=== PATIENT | female | born 1945 | race Caucasian/White ===

== ENCOUNTER → 2016-06-26 | Outpatient (CLI) | payer MEDICARE, OTHER ==
[~2016-06-26] MED LIST: ACULAR LS 5 ML5 ML OS; ANTIVERT 25MG25 MG PO; CEPHALEXIN500 M1 PO; IBUPROFEN200 M1 PO; NATURAL TEARS OS; NORCO 325 MG-51 TAB PO; OCUFLOX 10 ML10 ML OS; PRED FORTE 1 ML1 ML OS; PROAIR HFA0.09 MG/AC IH; SYNTHROID0.1 MG/TAB PO; VICODIN 5/5001 UDTAB PO; ZOVIRAX400 MG PO
== END ==
LOC: MC.RAD 12:58
DX: Z12.31 Encounter for screening mammogram for malignant neoplasm of breast (principal)

== ENCOUNTER 2017-07-28 17:32 | Emergency (ER) | payer MEDICARE, OTHER ==
[~2017-07-28] VITALS: Ht 162.6 cm; Wt 100.3 kg
[2017-07-28 17:36] VITALS: TEMP 98.8
[2017-07-28] MEDS ORDERED: CEPHALEXIN500 M1 PO (19:35)
[2017-07-28] MEDS ORDERED: SUDAFED30 MG PO (19:35)
[2017-07-28 19:52] VITALS: BP 146/91; PULSE 71
== END 2017-07-28 19:57 | disposition home or self-care (01) ==
LOC: COL.ER 17:32
DX: S30.0XXA Contusion of lower back and pelvis, initial encounter (principal); S00.83XA Contusion of other part of head, initial encounter; S60.221A Contusion of right hand, initial encounter; S00.33XA Contusion of nose, initial encounter; G89.29 Other chronic pain; M54.2 Cervicalgia; Z98.890 Other specified postprocedural states; Z23 Encounter for immunization; E03.9 Hypothyroidism, unspecified; W01.10XA Fall on same level from slipping, tripping and stumbling with subsequent striking against unspecified object, initial encounter; Y92.009 Unspecified place in unspecified non-institutional (private) residence as the place of occurrence of the external cause

== ENCOUNTER → 2017-08-04 | Outpatient (CLI) | payer MEDICARE, OTHER ==
[~2017-08-04] MED LIST changes: +SUDAFED30 MG PO
== END ==
LOC: MC.RAD 10:25
DX: Z12.31 Encounter for screening mammogram for malignant neoplasm of breast (principal)

== ENCOUNTER 2018-04-10 20:34 | Emergency (ER) | payer MEDICARE, OTHER ==
[~2018-04-10] VITALS: Ht 162.6 cm; Wt 90.9 kg
[2018-04-10 21:20] LABS: ALBUMIN 3.9 gm/dL (3.5-5.0); BILIRUBIN,TOTAL 0.6 mg/dL (0.0-1.0); CALCIUM 8.6 mg/dL (8.4-10.2); CREATININE, serum 0.92 mg/dL (0.52-1.25); POTASSIUM 3.8 mmol/L (3.4-5.0); TOTAL PROTEIN 7.1 gm/dL (6.4-8.2)
[2018-04-10 21:27] LABS: COLLECTION METHOD CLEAN CATCH
[2018-04-10 21:31] LABS: BASO % 0.8 % (0.0-2.0); EOS % 0.3 % (0-4.0); GRAN # 1.6 (1.4-6.5); GRAN % 41.4 % (42.2-75.2); HEMATOCRIT 40.9 % (37.0-47.0); HEMOGLOBIN 13.6 g/dl (12.5-16.0); LYMPH # 1.5 (1.2-3.4); LYMPH % 38.5 % (20.0-51.0); MEAN CELL VOLUME 90 fl (80.0-100.0); MEAN CORPUSCULAR HEMOGLOBIN 30 pg (27.0-31.0); MEAN CORPUSCULAR HGB CONC 33 g/dl (33.0-37.0); MEAN PLATELET VOLUME 11.2 fl (7.4-10.4); MONO # 0.7 (0.1-0.6); MONO % 18.7 % (1.7-9.3); PLATELET COUNT 174 K/mm3 (130-400); RED BLOOD COUNT 4.55 M/mm3 (4.10-5.30)
[2018-04-10 22:00] LABS: HYALINE CAST >12 /lpf; MUCOUS Present /lpf; PH 5 (5-8); URINE APPEARANCE Hazy; URINE BACTERIA None Seen /hpf; URINE BILIRUBIN Negative (NEGATIVE); URINE BLOOD Negative (NEGATIVE); URINE COLOR Amber; URINE GLUCOSE Negative (NEGATIVE); URINE KETONE Trace (NEGATIVE); URINE LEUKOCYTE ESTERASE Negative (NEGATIVE); URINE NITRATE Negative (NEGATIVE); URINE PROTEIN(semi-quant) 1+ (NEGATIVE); URINE RBC 0-2 /hpf; URINE UROBILINOGEN >=4.0 mg/dL (NEGATIVE)
[2018-04-10] MEDS ORDERED: TAMIFLU 75MG75 MG PO (22:16)
[2018-04-10 22:44] VITALS: BP 135/79; PULSE 72; TEMP 98
== END 2018-04-10 22:46 | disposition home or self-care (01) ==
LOC: COL.ER 20:34
PROVIDERS: Emergency Medicine
DX: R19.7 Diarrhea, unspecified (principal)
CPT/HCPCS: J2405; J7030

== ENCOUNTER → 2018-08-05 | Outpatient (CLI) | payer MEDICARE, OTHER ==
[~2018-08-05] MED LIST changes: +TAMIFLU 75MG75 MG PO
== END ==
LOC: MC.RAD 10:36
DX: Z12.31 Encounter for screening mammogram for malignant neoplasm of breast (principal)

== ENCOUNTER → 2019-08-27 | Outpatient (CLI) | payer MEDICARE, OTHER | LOC: MC.RAD 10:46 | DX: Z12.31 Encounter for screening mammogram for malignant neoplasm of breast (principal); N63.20 Unspecified lump in the left breast, unspecified quadrant ==

== ENCOUNTER → 2019-09-01 | Outpatient (CLI) | payer MEDICARE, OTHER | LOC: MC.RAD 07:50 | DX: N63.20 Unspecified lump in the left breast, unspecified quadrant (principal) ==

== ENCOUNTER → 2019-09-08 | Outpatient (CLI) | payer MEDICARE, OTHER | LOC: MC.RAD 09:50 | DX: N63.20 Unspecified lump in the left breast, unspecified quadrant (principal); Z98.82 Breast implant status | CPT/HCPCS: 30634 ==

== ENCOUNTER 2019-09-28 06:29 | Day surgery (SDC) | payer MEDICARE, OTHER ==
[~2019-09-28] VITALS: Ht 162.6 cm; Wt 91.3 kg
[2019-09-28] VITALS (7 sets, daily range): BP systolic 126–171; BP diastolic 62–85; PULSE 56–70; TEMP 98.3
[2019-09-28] MEDS ORDERED: ZYRTEC 10MG10 MG PO (08:39)
[2019-09-28] MEDS ORDERED: TYLENOL 500MG500 MG PO (08:40)
--- NOTE | 2019-09-28 09:45 | NUR ---
Patient returns to radiology per wheelchair accompanied by radiology staff.
--- NOTE | 2019-09-28 12:00 | NUR ---
Patient returns to room and assisted across the hallway to the restroom. Able to void and returns to room. Taken to the recovery room per cart for placement of block.
[2019-09-28] MEDS ORDERED: NORCO 325 MG-51 TAB PO (14:06)
--- NOTE | 2019-09-28 15:30 | NUR ---
Patient returns to room 6 per cart from PACU accompanied by Kellie ARAUZ and is awake and alert. IV fluids infusing and site is free of redness. Temp 97.8 and room air sats 98%. Dressing clean and dry x2 on the left breast and left axilla area. Siderails up x2 and call light in reach. Allowed to rest.
--- NOTE | 2019-09-28 15:45 | NUR ---
Room air sats 98% and resting when not disturbed.
--- NOTE | 2019-09-28 16:00 | NUR ---
Room air sats 97% and is sipping on water. Left breast dressing remains dry and intact.
--- NOTE | 2019-09-28 16:15 | NUR ---
Eating applesauce, muffin, and drinking diet Coke. Room air sats 94%.
--- NOTE | 2019-09-28 16:30 | NUR ---
Tolerated muffin and diet Coke. Denies pain or nausea.
--- NOTE | 2019-09-28 16:40 | NUR ---
Assisted up to the bathroom and gait is steady. Voids and returns to room Given dismissal instructions and voices understanding of these. Provided script for [place]. Given follow up appointment date and time.
--- NOTE | 2019-09-28 16:57 | NUR ---
Patient dismissed to home driven by son and taken to the front door per wheelchair and assisted into vehicle with dismissal instructions in hand.
== END 2019-09-28 16:57 | disposition home or self-care (01) ==
LOC: SDCO 06:29
DX: C50.112 Malignant neoplasm of central portion of left female breast (principal); G47.33 Obstructive sleep apnea (adult) (pediatric); I10 Essential (primary) hypertension; J45.909 Unspecified asthma, uncomplicated; E78.5 Hyperlipidemia, unspecified; K21.9 Gastro-esophageal reflux disease without esophagitis; M19.90 Unspecified osteoarthritis, unspecified site; E03.9 Hypothyroidism, unspecified; Z17.0 Estrogen receptor positive status [ER+]; Z90.49 Acquired absence of other specified parts of digestive tract; Z86.73 Personal history of transient ischemic attack (TIA), and cerebral infarction without residual deficits; Z87.440 Personal history of urinary (tract) infections; Z90.710 Acquired absence of both cervix and uterus; Z88.5 Allergy status to narcotic agent; Z88.8 Allergy status to other drugs, medicaments and biological substances; Z20.828 Contact with and (suspected) exposure to other viral communicable diseases
CPT/HCPCS: A9541; J0690; J1170; J2250; J2704; J2795; J3010; J7120

== ENCOUNTER → 2020-01-10 | Outpatient (CLI) | payer MEDICARE, OTHER ==
[~2020-01-10] MED LIST changes: +TYLENOL 500MG500 MG PO; +ZYRTEC 10MG10 MG PO
== END ==
LOC: MC.RAD 13:36
DX: D05.12 Intraductal carcinoma in situ of left breast (principal); Z98.890 Other specified postprocedural states; Z92.3 Personal history of irradiation

== ENCOUNTER → 2020-08-28 | Outpatient (CLI) | payer MEDICARE, OTHER | LOC: MC.RAD 10:00 | DX: Z12.31 Encounter for screening mammogram for malignant neoplasm of breast (principal); Z92.3 Personal history of irradiation; Z98.890 Other specified postprocedural states ==

== ENCOUNTER → 2021-05-21 | Outpatient (CLI) | payer MEDICARE, OTHER | LOC: COL.RAD 05-17 10:30 | DX: R10.11 Right upper quadrant pain (principal); Z90.49 Acquired absence of other specified parts of digestive tract ==

== ENCOUNTER → 2021-09-13 | Outpatient (CLI) | payer MEDICARE, OTHER | LOC: MC.RAD 10:13 | DX: Z12.31 Encounter for screening mammogram for malignant neoplasm of breast (principal) ==

== ENCOUNTER → 2022-06-07 | Outpatient (CLI) | payer MEDICARE, OTHER | LOC: COL.LAB 14:31 | DX: D05.12 Intraductal carcinoma in situ of left breast (principal); R22.43 Localized swelling, mass and lump, lower limb, bilateral ==

== ENCOUNTER → 2023-06-09 | Outpatient (CLI) | payer MEDICARE, OTHER ==
[~2023-06-09] MED LIST changes: +PREDNISONE20 MG PO
== END ==
LOC: MHCPAIN 09:43
DX: M47.897 Other spondylosis, lumbosacral region (principal); M54.16 Radiculopathy, lumbar region
CPT/HCPCS: G0463

== ENCOUNTER → 2023-06-26 | Outpatient (CLI) | payer MEDICARE, OTHER ==
[~2023-06-26] MED LIST changes: +Iohexol 300 - 10 ML VIAL ONE; +Lidocaine PF 2% (20 MG/ML) 2 ML VIAL ONE
== END ==
LOC: MHCPAIN 13:08
DX: M54.16 Radiculopathy, lumbar region (principal)
CPT/HCPCS: J1100; Q9967

== ENCOUNTER → 2023-09-01 | Outpatient (CLI) | payer MEDICARE, OTHER ==
[~2023-09-01] MED LIST changes: -Iohexol 300 - 10 ML VIAL ONE; -Lidocaine PF 2% (20 MG/ML) 2 ML VIAL ONE
== END ==
LOC: MHCPAIN 12:18
DX: M47.816 Spondylosis without myelopathy or radiculopathy, lumbar region (principal); M48.061 Spinal stenosis, lumbar region without neurogenic claudication; G89.29 Other chronic pain
CPT/HCPCS: G0463

== ENCOUNTER → 2023-09-22 | Outpatient (CLI) | payer MEDICARE, OTHER | LOC: MC.RAD 12:26 | DX: Z12.31 Encounter for screening mammogram for malignant neoplasm of breast (principal) ==